=== PATIENT | male | born 1945 | race Caucasian/White ===

== ENCOUNTER 2021-01-23 23:54 | Inpatient (IN) ==
[2021-01-24] MEDS ORDERED: Isovue-370 500 ML BOTTLE IVP ONE (04:04)
[2021-01-24 04:26] LABS: Basophils % 0.3 %; Eosinophils # 0.2 K/mcL (0.0-0.6); Eosinophils % 3.1 %; Hematocrit 36.7 % (37.5-50.1); Hemoglobin 12.1 g/dL (12.9-16.9); Immature Granulocytes % 0.1 % (0-4); Lymphocytes # 1.6 K/mcL (0.6-4.6); Lymphocytes % 23.8 %; Mean Corpuscular Hemoglobin 29.5 pg (28.0-33.3); Mean Corpuscular Volume 89.5 fL (83.0-100.0); Mean Platelet Volume 9.7 fL (9.4-12.4); Monocytes # 0.7 K/mcL (0.0-1.3); Monocytes % 9.5 %; Neutrophils # 4.3 K/mcL (1.6-8.9); Platelet Count 187 K/mcL (140-400); Red Cell Distribution Width 13.9 % (11.5-14.5); Segmented Neutrophils % 63.2 %; White Blood Count 6.8 K/mcL (4.3-11.1)
[2021-01-24 04:27] LABS: Alanine Aminotransferase 13 Units/L (7-52); Albumin 3.7 g/dL (3.5-5.7); Albumin/Globulin Ratio 1.3 (1.1-2.2); Alkaline Phosphatase 62 Units/L (34-104); Aspartate Amino Transferase 15 Units/L (13-39); BUN/Creatinine Ratio 18 (6-26); Bilirubin,Total 1.2 mg/dL (0.3-1.0); Blood Urea Nitrogen 13 mg/dL (8-23); Calcium 8.6 mg/dL (8.6-10.3); Carbon Dioxide 27 mEq/L (23-29); Chloride 105 mEq/L (98-107); Globulin 2.9 g/dL (2.4-3.5); Glucose 119 mg/dL (70-105); Magnesium 2.1 mg/dL (1.6-2.6); Osmolality,Calculated 297 (280-300); Potassium 3.2 mEq/L (3.5-5.1); Sodium 143 mEq/L (136-145); Total Protein 6.6 g/dL (6.4-8.9); Troponin I < 0.03 ng/mL (< 0.04); eGFR For African Americans > 60 (> 60); eGFR For Non-African Americans > 60 (> 60)
[2021-01-24] MEDS ORDERED: Ondansetron 4 MG/2 ML VIAL IVP PRN (04:56)
[2021-01-24] MEDS ORDERED: Acetaminophen 325 MG TABLET PO PRN (04:56)
[2021-01-24] MEDS ORDERED: Naloxone 0.4 MG/ML INJ IVP PRN (04:56)
[2021-01-24] MEDS ORDERED: Perflutren Lipid Microsphere 1.3 ML in 0.9 % Sodium Chloride 8.7 ML IVP PRN (04:58)
[2021-01-24] MEDS ORDERED: *HR* Dextrose 50 % in Water (Vial) 50 ML VIAL IVP PRN (05:12)
[2021-01-24] MEDS ORDERED: D5% in Water 1,000 ML IVC PRN (05:12)
[2021-01-24] MEDS ORDERED: Dextrose Gel 15 GM/37.5 ML TUBE PO PRN ×2 (05:12)
[2021-01-24] MEDS: Insulin LISPRO 300 UNITS/3 ML VIAL SUBQ SCH ×4 (08:55→20:02)
[2021-01-24] MEDS ORDERED: Furosemide 40 MG/4 ML VIAL IVP SCH (09:00)
[2021-01-24] MEDS ORDERED: traZODone 50 MG TABLET PO PRN (17:17)
[2021-01-24] MEDS: *HR* Rivaroxaban 10 MG TABLET PO SCH (17:18)
[2021-01-24] MEDS: hydrALAZINE 25 MG TABLET PO SCH (20:10)
[2021-01-25 02:38] LABS: Basophils % 0.4 %; Eosinophils # 0.2 K/mcL (0.0-0.6); Eosinophils % 2.7 %; Hematocrit 39.9 % (37.5-50.1); Hemoglobin 12.8 g/dL (12.9-16.9); Immature Granulocytes % 0.3 % (0-4); Lymphocytes # 1.7 K/mcL (0.6-4.6); Lymphocytes % 21.5 %; Mean Corpuscular HGB Conc 32.1 g/dL (31.6-35.5); Mean Corpuscular Hemoglobin 29.1 pg (28.0-33.3); Mean Corpuscular Volume 90.7 fL (83.0-100.0); Mean Platelet Volume 9.5 fL (9.4-12.4); Monocytes # 0.7 K/mcL (0.0-1.3); Monocytes % 8.6 %; Neutrophils # 5.1 K/mcL (1.6-8.9); Platelet Count 199 K/mcL (140-400); Segmented Neutrophils % 66.5 %; White Blood Count 7.7 K/mcL (4.3-11.1)
[2021-01-25 02:46] LABS: INR 2.3; Prothrombin Time 25.9 Seconds (9.4-12.1)
[2021-01-25 02:57] LABS: BUN/Creatinine Ratio 20 (6-26); Blood Urea Nitrogen 14 mg/dL (8-23); Calcium 8.6 mg/dL (8.6-10.3); Carbon Dioxide 25 mEq/L (23-29); Chloride 105 mEq/L (98-107); Glucose 119 mg/dL (70-105); Magnesium 2.1 mg/dL (1.6-2.6); Osmolality,Calculated 296 (280-300); Potassium 3.4 mEq/L (3.5-5.1); Sodium 142 mEq/L (136-145); eGFR For African Americans > 60 (> 60); eGFR For Non-African Americans > 60 (> 60)
[2021-01-25] MEDS: BuPROPion XL (24 HR) 150 MG TABLET PO SCH (09:33)
[2021-01-25] MEDS: Finasteride 5 MG TABLET PO SCH (09:34)
[2021-01-25] MEDS: hydrALAZINE 25 MG TABLET PO SCH ×3 (09:34→20:34)
[2021-01-25] MEDS: *HR* Amiodarone 200 MG TABLET PO SCH (09:34)
[2021-01-25] MEDS: Furosemide 40 MG/4 ML VIAL IVP SCH ×2 (09:34→20:35)
[2021-01-25] MEDS: Insulin LISPRO 300 UNITS/3 ML VIAL SUBQ SCH ×4 (09:35→20:33)
[2021-01-25] MEDS: atenoloL 25 MG TABLET PO SCH (09:38)
[2021-01-25] MEDS: *HR* Rivaroxaban 10 MG TABLET PO SCH (16:10)
[2021-01-26 05:52] LABS: BUN/Creatinine Ratio 25 (6-26); Blood Urea Nitrogen 20 mg/dL (8-23); Calcium 8.7 mg/dL (8.6-10.3); Carbon Dioxide 25 mEq/L (23-29); Chloride 104 mEq/L (98-107); Glucose 116 mg/dL (70-105); Osmolality,Calculated 300 (280-300); Potassium 3.1 mEq/L (3.5-5.1); Sodium 143 mEq/L (136-145); eGFR For African Americans > 60 (> 60); eGFR For Non-African Americans > 60 (> 60)
[2021-01-26] MEDS: Insulin LISPRO 300 UNITS/3 ML VIAL SUBQ SCH ×4 (08:17→20:28)
[2021-01-26] MEDS: Finasteride 5 MG TABLET PO SCH (08:35)
[2021-01-26] MEDS: BuPROPion XL (24 HR) 150 MG TABLET PO SCH (08:35)
[2021-01-26] MEDS: atenoloL 25 MG TABLET PO SCH (08:35)
[2021-01-26] MEDS: Furosemide 40 MG/4 ML VIAL IVP SCH ×2 (08:35→20:37)
[2021-01-26] MEDS: hydrALAZINE 25 MG TABLET PO SCH ×3 (08:35→20:36)
[2021-01-26] MEDS: *HR* Amiodarone 200 MG TABLET PO SCH (08:35)
[2021-01-26] MEDS: *HR* Rivaroxaban 10 MG TABLET PO SCH (16:27)
[2021-01-27 01:44] LABS: BUN/Creatinine Ratio 22 (6-26); Blood Urea Nitrogen 21 mg/dL (8-23); Calcium 8.8 mg/dL (8.6-10.3); Carbon Dioxide 26 mEq/L (23-29); Chloride 105 mEq/L (98-107); Glucose 123 mg/dL (70-105); Osmolality,Calculated 296 (280-300); Potassium 3.4 mEq/L (3.5-5.1); Sodium 141 mEq/L (136-145); eGFR For African Americans > 60 (> 60); eGFR For Non-African Americans > 60 (> 60)
[2021-01-27 06:43] VITALS: BP 158/84
[2021-01-27] MEDS: Insulin LISPRO 300 UNITS/3 ML VIAL SUBQ SCH (06:57)
[2021-01-27] MEDS: BuPROPion XL (24 HR) 150 MG TABLET PO SCH (08:17)
[2021-01-27] MEDS: Furosemide 40 MG/4 ML VIAL IVP SCH (08:17)
[2021-01-27] MEDS: atenoloL 25 MG TABLET PO SCH (08:17)
[2021-01-27] MEDS: Finasteride 5 MG TABLET PO SCH (08:17)
[2021-01-27] MEDS: *HR* Amiodarone 200 MG TABLET PO SCH (08:17)
[2021-01-27] MEDS: hydrALAZINE 25 MG TABLET PO SCH (08:17)
[2021-01-27 13:58] LABS: Estimated Average Glucose 146 mg/dl; Hemoglobin A1C 6.7 %
== END 2021-01-27 10:42 | disposition home or self-care (01) | DRG 291 ==
LOC: EMEROOARM 23:54 → 2ANU 23:54 → SUATTDRO 01-24 04:28 → 2ANU 01-24 05:50
PROVIDERS: ADMIT Student in an Organized Health Care Education/Training Program; ATTEND Family Medicine